=== PATIENT | male | born 1970 | race American Indian/Alaskan Native ===

== ENCOUNTER 2017-05-14 13:28 | Emergency (ER) | payer BC ==
--- NOTE | 2017-05-14 14:34 | Emergency Department Report ---
Blank Doc - Documentation Documentation: Patient is a 46-year-old male who is presenting with 2-3 days of cough congestion and pain when he breathes. Patient was seen in urgent care yesterday we'll start of antibiotics but was told that he may need a CAT scan of the chest. Patient states that they thought he may have pneumonia but weren' t sure and thought that this could also be a mass or an infarct of the lung. Patient will be taken to a treatment room we'll do blood work patient will undergo a CTA of the chest.
[2017-05-14 14:39] LABS: Hematocrit 40.2 % (35.5-45.6); Hemoglobin 13.1 gm/dl (11.8-15.2); Mean Corpuscular HGB Conc 33 % (32-34); Mean Corpuscular Hemoglobin 28 pg (28-32); Mean Corpuscular Volume 84 fl (84-94); Platelet Count 323 K/mm3 (140-440); Red Blood Count 4.77 M/mm3 (3.65-5.03); Red Cell Distribution Width 13.9 % (13.2-15.2)
[2017-05-14 14:49] LABS: BUN/Creatinine Ratio 11; Blood Urea Nitrogen 10 mg/dL (9-20); Hemolysis Index 4
[2017-05-14] MEDS ORDERED: DUONEB *Not for PRN Use IH ONE (14:56)
--- NOTE | 2017-05-14 16:06 | Cat Scan Report ---
FINAL REPORT EXAM: CT ANGIO CHEST HISTORY: cough CP w/breathing sent from Urgent care for CT TECHNIQUE: CTA of the chest was performed after the administration of intravenous contrast. Rotating MIPS were included. Reconstructions were included in the coronal and sagittal planes. PRIORS: None. FINDINGS: Pulmonary arteries and thoracic aorta: The study is adequate for diagnostic purposes. No central or segmental pulmonary embolism. The thoracic aorta is normal in caliber. Lungs and airways: No pleural effusion. There is a focal consolidation with surrounding ground-glass opacity in the medial aspect of the right upper lobe. Air bronchograms are seen. The airways are patent. No bronchiectasis. No pulmonary nodules or masses. Mediastinum, heart, pericardium: Several prominent mediastinal lymph nodes are likely reactive. The largest in the right paratracheal region measures 2.0 x 1.2 centimeters. No cardiac chamber enlargement. No pericardial effusion. Thoracic inlet, chest wall, axilla: Well-circumscribed fatty lesion is seen along the posterior aspect of the right scapula which is incompletely imaged. The visualized portions of the thyroid gland demonstrate no focal lesion. No axillary lymphadenopathy. Upper abdomen: The visualized structures demonstrate no specific abnormality. Bones: Mild degenerative changes are seen in the spine. IMPRESSION: 1. No central or segmental pulmonary embolism. 2. Findings concerning for right upper lobe pneumonia. 3. Mildly enlarged mediastinal lymph nodes are likely reactive. 4. Probable lipoma in the right posterior chest wall posterior to the right scapula which is incompletely imaged.
[2017-05-14] MEDS ORDERED: XYLOCAINE 1% MPF 5 mL INFILTRATI ONE (16:42)
[2017-05-14] MEDS ORDERED: ROCEPHIN IM ONE (16:42)
[2017-05-14 16:46] LABS: Basophils % (Manual) 0 % (0.0-1.8); Total Cells Counted 100
[2017-05-14 16:47] LABS: Anisocytosis Few
--- NOTE | 2017-05-14 16:53 | Emergency Department Report ---
ED Shortness of Breath HPI - General Chief Complaint: Dyspnea/Respdistress Stated Complaint: SHORTNESS OF BREATH Time Seen by Provider: 05/14/17 14:15 Source: patient Mode of arrival: Ambulatory Limitations: No Limitations - History of Present Illness Initial Comments: This is a 46-year-old male nontoxic, well nourished in appearance, no acute signs of distress presents to the ED with c/o of intermittent shortness of breathe. Patient also stated has cough productive for 2-3 days. Patient stated was seen in urgent care yesterday and was diagnosed with PNA and was instructed to come to the ED for CTA scan due to "abnormal xray". Patient stated he started to take Zpak that prescribed to him yesterday. Patient stated this is intermittent and occurs when he comes into work and resolved when he leaves work. Patient stated at work there is a lot of dust. Patient denies any sick contact. Patient denies any recent travels, long car, recent hospital stays. Patient denies any calf pain or calf tenderness. Patient denies any chest pain , fever, chills, nausea, vomiting, hemoptysis, numbness, tingling, headache or stiff neck. Patient denies any allergies or PMH. MD Complaint: shortness of breath -: days(s) (3) Pain Scale: 0 Consistency: intermittent Improves With: other (home) Worsens With: other (work) Context: recent URI Associated Symptoms: denies other symptoms - Related Data Previous Rx's Medication Instructions Recorded Last Taken Type ALBUTEROL Inhaler [ProAir HFA 2 puff IH QID PRN #1 inhalation 05/14/17 Unknown Rx Inhaler] Prednisone [predniSONE 10 mg 10 mg PO .TAPER #1 tab.ds.pk 05/14/17 Unknown Rx (6-Day Pack, 21 Tabs)] Allergies Allergy/AdvReac Type Severity Reaction Status Date / Time No Known Allergies Allergy Unverified 05/14/17 13:32 ED Review of Systems ROS: Stated complaint: SHORTNESS OF BREATH Other details as noted in HPI Constitutional: denies: chills, fever Eyes: denies: eye pain, eye discharge, vision change ENT: denies: ear pain, throat pain Respiratory: cough, shortness of breath. denies: wheezing Cardiovascular: denies: chest pain, palpitations Endocrine: no symptoms reported Gastrointestinal: denies: abdominal pain, nausea, diarrhea Genitourinary: denies: urgency, dysuria Musculoskeletal: denies: back pain, joint swelling, arthralgia Skin: denies: rash, lesions Neurological: denies: headache, weakness, paresthesias Psychiatric: denies: anxiety, depression Hematological/Lymphatic: denies: easy bleeding, easy bruising ED Past Medical Hx - Past Medical History Previous Medical History?: No - Surgical History Past Surgical History?: No - Social History Smoking Status: Current Every Day Smoker Substance Use Type: Alcohol - Medications Home Medications: Home Medications Medication Instructions Recorded Confirmed Last Taken Type ALBUTEROL Inhaler [ProAir HFA 2 puff IH QID PRN #1 inhalation 05/14/17 Unknown Rx Inhaler] Prednisone [predniSONE 10 mg 10 mg PO .TAPER #1 tab.ds.pk 05/14/17 Unknown Rx (6-Day Pack, 21 Tabs)] ED Physical Exam - General Limitations: No Limitations General appearance: alert, in no apparent distress - Head Head exam: Present: atraumatic, normocephalic - Eye Eye exam: Present: normal appearance, PERRL, EOMI Pupils: Present: normal accommodation - ENT ENT exam: Present: normal exam, normal orophraynx, mucous membranes moist, TM's normal bilaterally, normal external ear exam - Neck Neck exam: Present: normal inspection, full ROM. Absent: tenderness, meningismus, lymphadenopathy, thyromegaly - Respiratory Respiratory exam: Present: normal lung sounds bilaterally. Absent: respiratory distress, wheezes, rales, rhonchi, stridor, chest wall tenderness, accessory muscle use, decreased breath sounds, prolonged expiratory - Cardiovascular Cardiovascular Exam: Present: regular rate, normal rhythm, normal heart sounds. Absent: bradycardia, tachycardia, irregular rhythm, systolic murmur, diastolic murmur, rubs, gallop - GI/Abdominal GI/Abdominal exam: Present: soft, normal bowel sounds. Absent: distended, tenderness, guarding, rebound, rigid, diminished bowel sounds - Rectal Rectal exam: Present: deferred - Extremities Exam Extremities exam: Present: normal inspection, full ROM, normal capillary refill. Absent: tenderness, pedal edema, joint swelling, calf tenderness - Back Exam Back exam: Present: normal inspection, full ROM. Absent: tenderness, CVA tenderness (R), CVA tenderness (L), muscle spasm, paraspinal tenderness, vertebral tenderness, rash noted - Neurological Exam Neurological exam: Present: alert, oriented X3, CN II-XII intact, normal gait, reflexes normal - Psychiatric Psychiatric exam: Present: normal affect, normal mood - Skin Skin exam: Present: warm, dry, intact, normal color. Absent: rash ED Course Vital Signs 05/14/17 13:32 Temperature 98.5 F Pulse Rate 80 Respiratory 18 Rate Blood Pressure 144/82 O2 Sat by Pulse 100 Oximetry - Reevaluation(s) Reevaluation #1: 05/14/17 16:56 Patient is speaking in full sentences with no signs of distress noted. - Consultations Consultation #1: 05/14/17 16:57 Patient has been consulted with Dr. Marie about patient history, physical exam , and labs and examined and screened patient and agrees to ED plan of care and discharge plan of care. ED Medical Decision Making - Lab Data Result diagrams: 05/14/17 14:29 05/14/17 14:29 - Medical Decision Making This is a 36-year-old male that presents with pneumonia. Patient is stable and was examined by me and Dr. Marie. Labs within normal limits. CTA obtained and indicates that he does have pneumonia but patient stated he is currently being treated with azithromycin that he started yesterday. I did give patient a dose of 1 g of Rocephin IM in the ED. Patient was instructed to continue taking azithromycin. Patient also received DuoNeb and Solu-Medrol which patient 's symptoms of shortness breath has subsided. There is no indication of PE or DVT. Vital signs stable. Patient is discharged with prednisone. He was instructed to Follow-up with a primary care doctor in 3-5 days or if symptoms worsen and continue return to emergency room as soon as possible. At time of discharge, the patient does not seem toxic or ill in appearance. No acute signs of distress noted. Patient agrees to discharge treatment plan of care. No further questions noted by the patient. Critical care attestation.: If time is entered above; I have spent that time in minutes in the direct care of this critically ill patient, excluding procedure time. ED Disposition Clinical Impression: PNA (pneumonia) Qualifiers: Pneumonia type: due to unspecified organism Laterality: right Lung location: upper lobe of lung Qualified Code(s): J18.1 - Lobar pneumonia, unspecified organism Disposition: DC-01 TO HOME OR SELFCARE Is pt being admited?: No Does the pt Need Aspirin: No Condition: Stable Instructions: Bacterial Pneumonia (ED), Prednisone (By mouth) Additional Instructions: Follow-up with a primary care doctor in 3-5 days or if symptoms worsen and continue return to emergency room as soon as possible. Continue taking azithromycin antibiotics that was prescribed here in the urgent care. Prescriptions: ALBUTEROL Inhaler [ProAir HFA Inhaler] 2 puff IH QID PRN #1 inhalation PRN Reason: Shortness Of Breath Prednisone [predniSONE 10 mg (6-Day Pack, 21 Tabs)] 10 mg PO .TAPER #1 tab.ds.pk Referrals: PRIMARY CARE, [Primary Care Provider] - 3-5 Days USHA RODRIGUES MD [Staff Physician] - 3-5 Days [facility] [Outside] - 3-5 Days [facility] [Outside] - 3-5 Days Forms: Work/School Release Form(ED)
[2017-05-14 17:21] VITALS: BP 136/80
== END 2017-05-14 17:20 | disposition home or self-care (01) ==
LOC: ED 13:28
DX: J18.1 Lobar pneumonia, unspecified organism (principal); F17.200 Nicotine dependence, unspecified, uncomplicated
CPT/HCPCS: 36415; 71275; 80048; 85007; 85025; 93005; 93010; 94640; 96372; 99284; J0696; J2930; Q9967